=== PATIENT | female | born 1945 | race Caucasian/White ===

== ENCOUNTER → 2016-08-30 | Outpatient (CLI) | payer MEDICARE, OTHER ==
[~2016-08-30] MED LIST: ALPHA LIPOIC A300 MG PO; ASPIRIN81 MG PO; CHOLESTYRAMINE PO; CYMBALTA30 MG PO; DEXILANT60 MG PO; FLONASE 0.05% N16 GM; HYDROCHLOROTHIA25 MG PO; HYDROXYZINE HCL10 MG PO; IBUPROFEN400 MG PO; JANUVIA100 MG PO; LIPITOR TAB 2020 MG PO; LISINOPRIL5 MG PO; LOSARTAN POTASS25 MG PO; METOPROLOL TART25 MG PO; PROAIR HFA8.5 GM INH; TRAMADOL HCL50 MG PO; VITAMIN D1000 UNIT PO; WELCHOL 625 MG625 MG PO; WELCHOL625 MG PO
[2016-08-30 13:24] LABS: HEMOGLOBIN 12.3 gm/dl (12.3-15.3); RED BLOOD COUNT 4.22 M/UL (4.00-5.10); WHITE BLOOD COUNT 9.4 K/UL (4.5-11.0)
[2016-08-30 13:34] LABS: BUN/CREATININE RATIO 10 (0-10)
== END ==
LOC: OPSV2 12:18
PROVIDERS: Orthopaedic Surgery
DX: Z01.812 Encounter for preprocedural laboratory examination (principal); Z01.810 Encounter for preprocedural cardiovascular examination; M17.11 Unilateral primary osteoarthritis, right knee; E11.9 Type 2 diabetes mellitus without complications; I10 Essential (primary) hypertension; E78.00 Pure hypercholesterolemia, unspecified
CPT/HCPCS: 36415; 80048; 81001; 83036; 85025; 87077; 87081; 87086; 87186; 93005

== ENCOUNTER → 2020-03-16 | Day surgery (SDC) | payer BC, OTHER ==
[~2020-03-16] VITALS: Ht 157.5 cm; Wt 98.9 kg
[~2020-03-16] MED LIST changes: +DAIRY RELIE3000 UNIT PO; +DICLOFENAC GEL TD; +FEMARA2.5 MG PO; +JANUVIA 100 MG100 MG PO; +NEURONTIN100 MG PO; +NORCO 7.5-3251 EACH PO; +PREDFORTE OP SUS5 ML EYERT; +PROTONIX 40 MG40 M1 PO; +RESTASIS1 EACH EYELF; +TYLENOL 500 MG500 MG PO; +VENLAFAXINE H37.5 M2 PO; +VITAMIN B-121000 MCG PO; +VITAMIN D PO; +VOLTAREN EC 5050 MG PO; +ZOFRAN ODT 4 MG4 MG PO
[2020-03-16 11:30] LABS: HEMOGLOBIN 12.8 gm/dl (12.3-15.3); RED BLOOD COUNT 4.45 M/UL (4.00-5.10); WHITE BLOOD COUNT 6.5 K/UL (4.5-11.0)
== END | disposition home or self-care (01) ==
LOC: OR 03-04 08:45
PROVIDERS: Orthopaedic Surgery
DX: G56.03 Carpal tunnel syndrome, bilateral upper limbs (principal); G56.23 Lesion of ulnar nerve, bilateral upper limbs; I10 Essential (primary) hypertension; E11.9 Type 2 diabetes mellitus without complications; F32.9 Major depressive disorder, single episode, unspecified; F41.9 Anxiety disorder, unspecified; K21.9 Gastro-esophageal reflux disease without esophagitis; J30.2 Other seasonal allergic rhinitis; R35.0 Frequency of micturition; Z95.5 Presence of coronary angioplasty implant and graft
CPT/HCPCS: 80048; 82962; 85025; J0690; J1100; J2001; J2250; J2405; J2704; J2765; J3010; J7120